=== PATIENT | female | born 2000 | race African-American/Black ===

== ENCOUNTER 2020-09-06 17:17 | Emergency (ER) | payer OTHER ==
[~2020-09-06] VITALS: Ht 167.6 cm; Wt 86.2 kg
[2020-09-06] MEDS ORDERED: AMOXICILLIN500 M1 PO (17:57)
[2020-09-06] MEDS ORDERED: ERYTHROMYCIN E3.5 G2 OPHTHALMIC (17:57)
[2020-09-06 18:07] VITALS: BP 143/85
== END 2020-09-06 18:21 | disposition home or self-care (01) ==
LOC: ER 17:17
DX: H10.9 Unspecified conjunctivitis (principal); J02.9 Acute pharyngitis, unspecified